=== PATIENT | male | born 1940 | race Caucasian/White ===

== ENCOUNTER 2018-07-26 08:51 | Inpatient (IN) | payer OTHER ==
[~2018-07-26] VITALS: Ht 152.4 cm; Wt 77.1 kg
[~2018-07-26 08:51] MED LIST: BENICAR40 MG
== END 2018-08-14 08:40 | disposition expired | DRG 870 ==
LOC: ER 08:51 → ICU-2 07-27 14:21 → ICU 07-30 02:53
PROC: 5A1955Z Respiratory Ventilation, Greater than 96 Consecutive Hours (ICD-10-PCS; principal; 2018-07-27)
PROC: 5A1D70Z Performance of Urinary Filtration, Intermittent, Less than 6 Hours Per Day (ICD-10-PCS; 2018-07-27)
PROC: 30233N1 Transfusion of Nonautologous Red Blood Cells into Peripheral Vein, Percutaneous Approach (ICD-10-PCS; 2018-07-27)
PROC: 0BH17EZ Insertion of Endotracheal Airway into Trachea, Via Natural or Artificial Opening (ICD-10-PCS; 2018-07-27)
PROC: 3E0336Z Introduction of Nutritional Substance into Peripheral Vein, Percutaneous Approach (ICD-10-PCS; 2018-07-27)
PROC: BW21ZZZ Computerized Tomography (CT Scan) of Abdomen and Pelvis (ICD-10-PCS; 2018-07-27)
PROC: BW28ZZZ Computerized Tomography (CT Scan) of Head (ICD-10-PCS; 2018-07-27)
PROC: B246ZZZ Ultrasonography of Right and Left Heart (ICD-10-PCS; 2018-07-27)
PROC: 4A033R1 Measurement of Arterial Saturation, Peripheral, Percutaneous Approach (ICD-10-PCS; 2018-07-27)
PROC: 30233R1 Transfusion of Nonautologous Platelets into Peripheral Vein, Percutaneous Approach (ICD-10-PCS; 2018-07-27)
PROC: 02HV33Z Insertion of Infusion Device into Superior Vena Cava, Percutaneous Approach (ICD-10-PCS; 2018-08-01)
PROC: BW40ZZZ Ultrasonography of Abdomen (ICD-10-PCS; 2018-08-04)
PROC: 30233K1 Transfusion of Nonautologous Frozen Plasma into Peripheral Vein, Percutaneous Approach (ICD-10-PCS; 2018-08-09)
PROC: 0JHD3XZ Insertion of Tunneled Vascular Access Device into Right Upper Arm Subcutaneous Tissue and Fascia, Percutaneous Approach (ICD-10-PCS; 2018-08-09)
DX: A41.9 Sepsis, unspecified organism (principal); J96.01 Acute respiratory failure with hypoxia; R65.21 Severe sepsis with septic shock; J69.0 Pneumonitis due to inhalation of food and vomit; I50.23 Acute on chronic systolic (congestive) heart failure; Z99.11 Dependence on respirator [ventilator] status; K92.2 Gastrointestinal hemorrhage, unspecified; N17.8 Other acute kidney failure; A27.89 Other forms of leptospirosis; E87.2 Acidosis; R04.2 Hemoptysis; J90 Pleural effusion, not elsewhere classified; E87.6 Hypokalemia; D69.49 Other primary thrombocytopenia; I95.9 Hypotension, unspecified; D72.818 Other decreased white blood cell count; R34 Anuria and oliguria; D64.89 Other specified anemias; M54.5 Low back pain; Z99.2 Dependence on renal dialysis; D69.59 Other secondary thrombocytopenia; E86.0 Dehydration